=== PATIENT | male | born 1990 | race Caucasian/White ===

== ENCOUNTER 2024-12-01 15:50 | Outpatient (CLI) | payer OTHER, SELFPAY ==
[2024-12-01 16:11] LABS: Basophils # 0.1 K/mm3 (0-0.2); Basophils % 0.6 % (0.1-2.0); Eosinophils % 0.1 % (0.1-12.0); Hematocrit 40.4 % (42.0-52.0); Hemoglobin 14.1 g/dL (14.1-18.0); Lymphocytes # 1.7 K/mm3 (0.7-4.5); Lymphocytes % 22.5 % (10-50); Mean Corpuscular HGB Conc 34.9 g/dL (31.8-35.4); Mean Corpuscular Hemoglobin 31.1 pg (27.0-31.2); Monocytes # 0.5 K/mm3 (0.1-1.0); Monocytes % 6.7 % (1.7-9.3); Neutrophils # 5.4 K/mm3 (1.8-7.8); Neutrophils % 69.8 % (37.0-80.0); Platelet Count 184 K/mm3 (142-424); Red Blood Count 4.54 M/mm3 (4.60-6.20); Red Cell Distribution Width 11.8 % (11.5-17.5); White Blood Count 7.7 K/mm3 (4.8-10.8)
[2024-12-01 16:13] LABS: Chloride 102 mmol/L (98-107); Potassium 4.3 mmoL/L (3.5-5.1); Sodium 139 mmol/L (136-145)
[2024-12-01 16:16] LABS: Anion Gap 14.3 mEq/L (5-15); Blood Urea Nitrogen 25 mg/dl (9-20); Carbon Dioxide 27 mmol/L (22.0-30.0); Estimated Glomerular Filt Rate 78 ml/min (>60); GFR (African American) 94 ML/MIN (>60)
[2024-12-01 16:17] LABS: Calcium 9.7 mg/dl (8.4-10.2); Glucose 84 mg/dl (74-100)
== END 2024-12-01 23:59 | disposition home or self-care (01) ==
LOC: PREOP 15:51
PROVIDERS: PCP Family Medicine; Visit Provider Student in an Organized Health Care Education/Training Program
DX: J36 Peritonsillar abscess (principal)
CPT/HCPCS: 80048; 85025

== ENCOUNTER 2024-12-09 07:34 | Day surgery (SDC) | payer OTHER, SELFPAY ==
[2024-12-03 17:06] VITALS: BMI 26.4
[2024-12-09] VITALS (11 sets, daily range): BP systolic 133–160; BP diastolic 62–98; PULSE 71–100; RESP 15–16; TEMP 36.3–36.6; O2SAT 94–100
[2024-12-09] MEDS: LACTATED RINGERS 1000ML 1,000 ML 25 ML IV (07:46)
--- NOTE | 2024-12-09 07:58 | EXP.ANES.CKL ---
[facility] Disclaimer: The information contained in this section may have been updated after the patient was seen, as this information can be updated by other users. Medical History Tonsillar abscess No significant past medical history Surgical History [place] teeth extracted Family History Mother Cancer Other Coronary artery disease Social History Smoking Status: Never smoker alcohol intake: current alcohol intake frequency: a few times a month substance use type: denies use current occupational status: employed Travel in the last 8 weeks: Inside the [place] household members: significant other Have you lived/traveled outside [place] in past 30 days?: No Contact w/someone who lives/traveled outside [place] past 30 days?: No Exposure to someone with infectious disease in past 14 days?: No Do you have a fever (greater than 100.4 F or 38 C)?: No Have you tested positive for COVID-19: No Exposed to someone with COVID-19 in past 14 days?: No Do you have a sore throat?: No Do you have a cough?: No Do you have any weakness?: No Do you have any diarrhea?: No Are you experiencing any unusual bleeding?: No Do you have any muscle aches/pain?: No Do you have any abdominal pain?: No Are you experiencing loss of taste or smell?: No [facility] Anesthesia Checklist Patient Identification Patient Identification: Arm Band Structural Data Admitted From: Home Planned Operative Procedure/s: Tonsillectomy and Adenoidectomy Consent for Planned Operative Procedure(s) Verified: Yes Verified Documents: Surgical Consent and History and Physical NPO Status Verified Time NPO: 00:00 Additional verifications Anesthesia Reactions: No Hx Blood Transfusions: No Blood Transfusion Reaction: No Airway Assessment Mallampati Score:: Class I C-Spine Mobility Assessed: Yes TMJ Mobility Assessed: Yes Dentition: Good Dentition Neurological Assessment Level of Consciousness: Awake, Alert and Appropriate Anesthesia Plan Anesthesia Risk discussed: Yes Anesthesia Plan: Verified ASA Class: I Anesthesia Type: General
[2024-12-09] MEDS: BUPIVACAINE 0.5% W/EPI 1:200,000 30ML VIAL 30 ML IJ (08:33)
--- NOTE | 2024-12-09 09:19 | EXP.OP.NOTE ---
Date of procedure: 12/09/24 Pre-op Diagnosis:: recurrent tonsillitis and peritonsilar abscesses Post-op Diagnosis:: same Procedure performed:: tonsillectomy and adenoidectomy Surgeon:: Henrik German MD TRAY DELIVERY AIDE:: Zac Berger Anesthesia: GETA Estimated blood loss (mL): 25 Operative findings:: 1+ adenoids 3+ tonsils right tonsilar fossa significantly scarred in Operative note:: The patient was brought to the OR and laid in supine position. General anesthesia was induced. The patient was prepped and draped in the usual fashion. Their mouth was suspended with a Lucina-Darius mouth gag. Examination of the palate revealed no palatal clefts. The palate was elevated with a red rubber catheter. Mirror examination revealed?1 + adenoid hypertrophy. Adenoids were ablated down with suction cautery. I then turned my attention towards the tonsils. The patient had 3+ tonsils bilaterally. First the right tonsil was excised with Bovie cautery. Hemostasis was then achieved with suction cautery. I then went to the left tonsil. Patient's tonsilar fossa on the left was significantly scarred to the tonsil itself, taking meticulous dissection to free the tonsil from the capsule. There was a arterial appearing bleed from the left mid-tonsilar pole that was encountered that was controlled with initially pressure via tonsil ball, and then the suction cautery. The patient's nose and mouth were then thoroughly irrigated and suctioned out. Marcaine-soaked tonsil balls were placed in the tonsillar fossae for local anesthetic. These were then removed. Stomach was suctioned with an OG tube. All counts were confirmed correct. They were then turned back over to anesthesia to be awoken and extubated. Condition: stable Disposition: PACU Complications:: none
--- NOTE | 2024-12-09 09:21 | P.PNANES_ITS ---
[facility] Anesthesia Record Part I Anesthesia Record I Intake, IV Amount: 700 Hydration: Adequate Estimated blood loss (mL): 25 Urine output (mL): 0 Blood Pressure: 151/97 SaO2: 99 Pulse Rate: 100 Airway Patency: Patent Respiratory Rate: 15 Temperature: 97.4 F Patient is:: Drowsy Stable to PACU at:: 09:18
[2024-12-09] MEDS: MORPHINE 2MG/ML SYRINGE 2 MG IV ×2 (09:46→09:52)
--- NOTE | 2024-12-09 14:43 | EXP.ANES.II ---
[facility] Anesthesia Record Part II Anesthesia Record Part II Discharge Time: 09:48 Destination: Surgical Day Care (OP Surgery) PACU nurse assessment reviewed?: Yes Patient Condition:: Good Anesthesia Complications:: None Swallowing reflex intact?: Yes Airway Patency: Patent Cyanosis?: No Blood Pressure: 140/75 SaO2: 100 Respiratory Rate: 16 Pulse Rate: 73 Temperature: 97.6 F Mental Status: Alert & Oriented Pain level:: 6 Nausea and/or vomitting:: None Intake, IV Amount: 0 Hydration: Adequate
== END 2024-12-09 10:22 | disposition home or self-care (01) ==
PROVIDERS: PCP Family Medicine; Visit Provider Student in an Organized Health Care Education/Training Program
PROC: (CPT 42821; principal; 2024-12-09 09:00)
DX: J03.91 Acute recurrent tonsillitis, unspecified (principal)
CPT/HCPCS: 42821; J3490; J1100; J2250; J2270; J2405; J3010; J7120